=== PATIENT | female | born 1945 | race Caucasian/White ===

== ENCOUNTER → 2024-02-09 | Outpatient (CLI) | payer OTHER, SELFPAY ==
[2024-02-09 14:00] LABS: Alanine Aminotransferase 20 U/L (10-49); Albumin, Serum 4.5 gm/dL (3.4-4.8); Albumin/Globulin Ratio 2.3 (1.2-2.2); Alkaline Phosphatase 58 U/L (46-116); Anion Gap 7 (7-16); Aspartate Amino Transferase 23 U/L (0-34); BUN/Creatinine Ratio 18 Ratio (12-20); Bilirubin,Total 0.5 mg/dL (0.3-1.2); Blood Urea Nitrogen 16 mg/dL (9-23); Calcium 9.1 mg/dL (8.3-10.6); Calcium (Corrected) 9.1 mg/dL (8.5-10.1); Carbon Dioxide 28.8 mMol/L (20.0-31.0); Cardiac Risk Estimate 4.6 RATIO (3.7-5.6); Chloride 106 mMol/L (98-107); Cholesterol 175 mg/dL (132-200); Creatinine (Component) 0.9 mg/dL (0.6-1.3); Glucose 105 mg/dL (74-106); HDL Cholesterol 38 mg/dL (40-60); LDL Cholesterol,Calculated 103 mg/dL (0-130); Osmolality,Calculated 284 (275-295); Potassium 5.2 mMol/L (3.4-5.1); Sodium 142 mMol/L (136-145); Total Protein 6.5 gm/dL (5.7-8.2); Triglycerides 168 mg/dL (30-150); eGFR > 60 See Note
== END | disposition home or self-care (01) ==
PROVIDERS: PCP Family Medicine; Referring Provider Family Medicine; Visit Provider Family Medicine
DX: E78.2 Mixed hyperlipidemia (principal); I10 Essential (primary) hypertension
CPT/HCPCS: 36415; 80053; 80061

== ENCOUNTER → 2024-04-26 | Outpatient (CLI) | payer OTHER, SELFPAY ==
--- NOTE | 2024-04-26 12:00 | XR_ITS ---
Examination: Bone densitometry Date and time of exam:April 26, 2024 1214 hrs. Indications: Menopause age 47, asthma history Technique: Lumbar spine and hip total bone mineralization values of an calculated. Peak reference and age match control results have been displayed. Findings: Lumbar spine total bone mineralization is1.309 gm/cm2. This is 2.4 standard deviations above peak reference. This is 5.1 standard deviations above age-matched controls. Hip total bone mineralization is 0.902 gm/cm2 This is 0.3 standard deviations below peak reference. This is 1.8 standard deviations above age-matched controls Impression: There is normal mineralization based on lumbar spine measurements. There is normal mineralization based on hip measurements Lumbar mineralization is increase 15.3% compared with February 28, 2022 Hip mineralization is increased 3.2% compared with February 28, 2022
== END | disposition home or self-care (01) ==
LOC: CDIM 11:04
PROVIDERS: Referring Provider Family Medicine; Visit Provider Family Medicine
DX: M81.0 Age-related osteoporosis without current pathological fracture (principal)
CPT/HCPCS: 77080

== ENCOUNTER → 2024-06-29 | Outpatient (CLI) | payer OTHER, SELFPAY ==
[2024-06-29 11:52] LABS: Basophils % (Auto) 1 % (0-2.5); Eosinophils # (Auto) 0.1 Thou/mm3 (0.0-0.5); Eosinophils % (Auto) 2 % (0-10); Hematocrit 39.3 % (36.0-46.0); Hemoglobin 12.9 g/dL (12.0-16.0); Immature Granulocytes % (Auto) 0 % (0-0); Immature Granulocytes Auto 0.01 Thou/mm3 (0.00-0.00); Lymphocytes # (Auto) 1.5 Thou/mm3 (1.0-4.8); Lymphocytes % (Auto) 35 % (10-50); Mean Corpuscular HGB Conc 32.8 g/dl (31.0-37.0); Mean Corpuscular Hemoglobin 29.1 pg (25.0-35.0); Mean Corpuscular Volume 89 fL (80-100); Monocytes # (Auto) 0.4 Thou/mm3 (0.0-0.8); Monocytes % (Auto) 9 % (0-12); Neutrophils # (Auto) 2.3 Thou/mm3 (1.8-7.7); Neutrophils % (Auto) 54 % (37-80); Nucleated Red Blood Cell % 0 /100 WBC (0); Platelet Count 251 Thou/mm3 (140-440); Red Blood Count 4.43 Miln/mm3 (4.00-5.20); White Blood Count 4.3 Thou/mm3 (3.6-11.0)
[2024-06-29 12:37] LABS: Collection Type, Urine Catheter
[2024-06-29 12:48] LABS: Alanine Aminotransferase 15 U/L (10-49); Albumin, Serum 4.4 gm/dL (3.4-4.8); Albumin/Globulin Ratio 1.9 (1.2-2.2); Alkaline Phosphatase 54 U/L (46-116); Anion Gap 7 (7-16); Aspartate Amino Transferase 21 U/L (0-34); Bilirubin,Total 0.6 mg/dL (0.3-1.2); Blood Urea Nitrogen 13 mg/dL (9-23); Calcium 8.8 mg/dL (8.3-10.6); Calcium (Corrected) 8.8 mg/dL (8.5-10.1); Carbon Dioxide 30.1 mMol/L (20.0-31.0); Chloride 103 mMol/L (98-107); Globulin 2.3 gm/dL (2.3-3.5); Glucose 102 mg/dL (74-106); Osmolality,Calculated 279 (275-295); Sodium 140 mMol/L (136-145); Total Protein 6.7 gm/dL (5.7-8.2)
[2024-06-29 13:04] LABS: BUN/Creatinine Ratio 16 Ratio (12-20); Cardiac Risk Estimate 5.4 RATIO (3.7-5.6); Cholesterol 182 mg/dL (132-200); Creatinine (Component) 0.8 mg/dL (0.6-1.3); HDL Cholesterol 34 mg/dL (40-60); LDL Cholesterol,Calculated 106 mg/dL (0-130); Thyroid Stimulating Hormone 2.26 uIU/mL (0.55-4.78); Triglycerides 208 mg/dL (30-150); eGFR > 60 See Note
[2024-06-29 13:38] LABS: Bacteria,Urine Rare; Bilirubin,Urine Negative (Negative); Blood,Urine Negative (Negative); Clarity,Urine Clear (Clear/Hazy); Color,Urine Lt-Yellow (Lt Yel-Yel); Glucose, Urine Negative (Negative); Hyaline Casts,Urine < 1 /hpf (0-1); Ketones,Urine Negative (Negative); Leukocyte Esterase,Urine Negative (Negative); Nitrite,Urine Negative (Negative); Protein,Urine Negative (Neg - Trace); RBC,Urine 3 /hpf (0-3); Specific Gravity,Urine 1.016 (1.001-1.035); Squamous Epithelial Cell,Urine 9 /hpf (0-5); Urobilinogen,Urine Negative mg/dL (0.0-1.0); WBC,Urine 1 /hpf (0-5)
== END | disposition home or self-care (01) ==
LOC: COPL 10:48
PROVIDERS: PCP Family Medicine; Referring Provider Family Medicine; Visit Provider Family Medicine
DX: Z00.00 Encounter for general adult medical examination without abnormal findings (principal)
CPT/HCPCS: 36415; 80053; 80061; 81001; 84443; 85025

== ENCOUNTER → 2024-11-18 | Outpatient (CLI) | payer OTHER, SELFPAY ==
--- NOTE | 2024-11-18 10:00 | XR_ITS ---
Examination: Screening digital mammography, bilateral Computer aided detection 3-D breast Tomosynthesis, bilateral Date and time of exam: November 18, 2024 0936 hours, compared to mammograms dating to March 20, 2021 Indication: Screening Technique: Nonmagnified MLO, CC views of the breasts to been obtained, reconstructed from 3-D Tomosynthesis images. R2 computer aided detection program utilized for evaluation of suspicious masses and/or abnormal calcifications. 3-D Tomosynthesis images obtained. Findings: Scattered areas of fibroglandular density. Benign calcifications. No interval suspicious masses Impression: BI-RADS category II: Benign Findings. Recommend 1 year follow-up mammogram.
== END | disposition home or self-care (01) ==
LOC: CDIM 09:29
PROVIDERS: Referring Provider Family Medicine; Visit Provider Family Medicine
DX: Z12.31 Encounter for screening mammogram for malignant neoplasm of breast (principal); R92.323 Mammographic fibroglandular density, bilateral breasts; R92.1 Mammographic calcification found on diagnostic imaging of breast
CPT/HCPCS: 77063; 77067

== ENCOUNTER → 2025-01-13 | Outpatient (CLI) | payer OTHER, SELFPAY ==
[2025-01-13 11:14] LABS: Alanine Aminotransferase 18 U/L (10-49); Albumin, Serum 4.5 gm/dL (3.4-4.8); Albumin/Globulin Ratio 2.3 (1.2-2.2); Alkaline Phosphatase 57 U/L (46-116); Anion Gap 6 (7-16); Aspartate Amino Transferase 33 U/L (0-34); BUN/Creatinine Ratio 13 Ratio (12-20); Bilirubin,Total 0.4 mg/dL (0.3-1.2); Blood Urea Nitrogen 12 mg/dL (9-23); Calcium 8.9 mg/dL (8.3-10.6); Calcium (Corrected) 8.9 mg/dL (8.5-10.1); Carbon Dioxide 30.0 mMol/L (20.0-31.0); Cardiac Risk Estimate 4.4 RATIO (3.7-5.6); Chloride 107 mMol/L (98-107); Cholesterol 175 mg/dL (132-200); Creatinine (Component) 0.9 mg/dL (0.6-1.3); Globulin 2.0 gm/dL (2.3-3.5); Glucose 99 mg/dL (74-106); HDL Cholesterol 40 mg/dL (40-60); LDL Cholesterol,Calculated 101 mg/dL (0-130); Osmolality,Calculated 284 (275-295); Potassium 5.5 mMol/L (3.4-5.1); Sodium 143 mMol/L (136-145); Total Protein 6.5 gm/dL (5.7-8.2); Triglycerides 172 mg/dL (30-150); eGFR > 60 See Note
== END | disposition home or self-care (01) ==
LOC: COPL 09:26
PROVIDERS: PCP Family Medicine; Referring Provider Family Medicine; Visit Provider Family Medicine
DX: E78.2 Mixed hyperlipidemia (principal); I10 Essential (primary) hypertension
CPT/HCPCS: 36415; 80053; 80061